=== PATIENT | male | born 1980 | race Hispanic/Latino ===

== ENCOUNTER 2022-06-09 15:54 | Emergency (ER) | payer BC ==
[~2022-06-09] VITALS: Ht 175.3 cm; Wt 113.4 kg
[2022-06-09] MEDS ORDERED: DEXAMETHASONE SOD PHOS 10 MG/1 ML VIAL IM STA (16:08)
[2022-06-09] MEDS ORDERED: AZITHROMYCIN250 MG PO (16:26)
[2022-06-09] MEDS ORDERED: DEXAMETHASONE SOD PHOS INJ 4 MG/ML SDV ONE (16:29)
[2022-06-09] MEDS ORDERED: DEXAMETHASONE SOD PHOS INJ 4 MG/ML SDV IM ONE (16:30)
== END 2022-06-09 17:01 | disposition home or self-care (01) ==
LOC: FSED 16:09
DX: J02.0 Streptococcal pharyngitis (principal); I10 Essential (primary) hypertension; E11.9 Type 2 diabetes mellitus without complications
CPT/HCPCS: 83518; 87400; 99282; J1100

== ENCOUNTER 2022-08-08 16:42 | Emergency (ER) | payer BC, OTHER ==
[~2022-08-08] VITALS: Ht 175.3 cm; Wt 113.4 kg
[~2022-08-08 16:42] MED LIST: AZITHROMYCIN250 MG PO
[2022-08-08 18:58] VITALS: BP 149/88; PULSE 88; RESP 18; O2SAT 98
== END 2022-08-08 19:05 | disposition home or self-care (01) ==
LOC: FSED 16:56
DX: M25.512 Pain in left shoulder (principal); M25.522 Pain in left elbow; S39.012A Strain of muscle, fascia and tendon of lower back, initial encounter; V47.5XXA Car driver injured in collision with fixed or stationary object in traffic accident, initial encounter; Y92.488 Other paved roadways as the place of occurrence of the external cause; I10 Essential (primary) hypertension; E11.9 Type 2 diabetes mellitus without complications
CPT/HCPCS: 99282